=== PATIENT | female | born 1970 | race Caucasian/White ===

== ENCOUNTER → 2017-02-14 | Outpatient (CLI) | payer OTHER ==
[2016-02-29 08:39] VITALS: BP 128/80; PULSE 103; TEMP 36.8
[~2017-02-14] MED LIST: CYCL10TA6 PO; GABA-113 PO; NORT10CA2 PO
[2017-02-14 10:19] VITALS: BP 116/81; PULSE 73; TEMP 36.5
--- NOTE | 2017-02-14 12:20 | Pain Clinic Return Visit ---
Pain Clinic Return Visit Date of Service Feb 14, 2017. Reason For Visit Spinal cord stimulator check up Subjective Mrs. Mack is a 46 -year-old white female that presents for a spinal cord stimulator adjustment. Patient states that over the last year she has been experiencing pain on the left of the anchor incision of the spinal cord stimulator. Patient states that the pain started when she was mowing the lawn. She describes a deep aching pain that is aggravated with twisting and bending forwards. Patient denies any radicular symptoms. She does [id number] cream and applies heat to the area which is moderately efficacious. Patient denies any constitutional complaints, discharge, erythema, skin breakdown. Case discussed with Dr. Bone Home Medications Scheduled Cyclobenzaprine Hcl (Flexeril), 1 TAB PO TID Gabapentin (Neurontin), 300 MG PO QID Allergies Coded Allergies: Ciprofloxacin (Unverified Allergy, Unknown, GI SYMPTOMS, 08/15/15) Medications & Allergies Reconciled: Yes Review of Systems Denies complaints related to 10 point organ system review. Objective 116/81 BP Height feet, inches. Weight (Kilograms) (Pounds) Physical Exam: General: Mrs. Mack is a 46-year-old white female that appears her stated age. Speech and cognition is intact. Mood and affect is appropriate. She is sitting quietly in the exam room, in no acute distress. She is accompanied by her significant other. Right upper extremity: Patient does have mild contractures of the fourth and fifth digit. Patient is able to passively extend all but the fourth digit to 0 degrees. BACK: There is tenderness and spasm on the left of the distal thoracic incision site. There is tenderness to palpation. No mobility of the area. No skin breakdown, erythema, drainage, or warmth of the area. Neurologic: Cranial nerves are grossly intact. Ambulatory function is normal. Assessment Complex regional pain syndrome type I of the right upper extremity status post spinal cord stimulator implantation with 80% efficacy. Recommendations 1. Thoracic X-ray was ordered on the patient to evaluate the anchor site. X- ray was read by radiologist and appears negative. Advised the patient that it is likely scar tissue and to continue applying heat and using OTC topical creams. 2. [employer] client relations representative readjusted ther spinal cord stimulator settings with improvement of pain relief. Follow-Up as needed Dragon Voice Recognition This chart was completed in part utilizing [employer] Voice Recognition Software. Random word insertions, pronoun errors, and incomplete sentences are an occasional consequence of this system due to software limitations and ambient noise. Any questions or concerns about the content, text or information contained within the body of this dictation should be directly addressed to the provider for clarification. Additional Copies To Jaime Tompkins D.O.
== END ==
LOC: C.PAIN 08:18
PROVIDERS: ATTEND Anesthesiology

== ENCOUNTER → 2017-02-14 | Outpatient (CLI) | payer OTHER ==
--- NOTE | 2017-02-14 10:55 | DIAGNOSTIC IMAGING REPORT ---
THORACIC SPINE 3 VIEWS HISTORY: THORACIC BACK PAIN AT ANCHOR SITE COMPARISON: Thoracolumbar spine 12/06/2015. FINDINGS: There is no fracture. No subluxation. Mild disc space narrowing within the mid to lower thoracic spine persist. There is a left flank stimulator pack with the leads entering the T12-L1 interlaminar space. The leads appear intact. The leads terminate at the C4 level. IMPRESSION: No change in the position of the spinal stimulator leads. The leads appear intact. Electronically signed by: Efrain Garcia M.D. 02/14/2017 10:53 AM Dictated Date/Time: 02/14/2017 10:45 AM
== END | disposition home or self-care (01) ==
LOC: C.RADBC 10:26
PROVIDERS: ATTEND Physician Assistant Medical
DX: M54.6 Pain in thoracic spine (principal)